=== PATIENT | female | born 1980 | race Hispanic/Latino ===

== ENCOUNTER 2017-05-20 19:59 | Emergency (ER) | payer BC ==
[2017-05-20 20:55] VITALS: RESP 18; TEMP 98.3; O2SAT 100
[2017-05-20] MEDS ORDERED: Sodium Chloride 0.9% 1,000 ML IV STA (21:31)
--- NOTE | 2017-05-20 21:58 | ED PDOC ---
HPI: SOB/CHF/COPD Time Seen by Provider: 05/20/17 21:11 Chief Complaint (Nursing): Abnormal Skin Integrity Chief Complaint (Provider): Shortness of breath History Per: Patient History/Exam Limitations: no limitations Onset/Duration Of Symptoms: Worse Since Current Symptoms Are (Timing): Still Present Additional Complaint(s): Lary Costa, a 36 year old female presents to the Emergency Department complaining of shortness of breath for about two weeks ago and it is worsening since onset. Reports decrease in exercising tolerance and states she has difficulty breathing after walking more than half a block. States she has chest heaviness, racing heart, and cramping bilateral claves. Has generalized malaise , decreased liquid intake, fatigue, and lost weight. Also mentions she has nasal congestion and was treated with z-pack but there was no relief so she was given Levaquin and there was no relief. The patient was in the ED for blood work yesterday and had a positive result for D-dimer and the x-ray was negative. Denies chest pain, fever and no coughing. PMD: Guido Nicholson Past Medical History Reviewed: Historical Data, Nursing Documentation, Vital Signs Vital Signs: Last Vital Signs Temp 98.3 F 05/20/17 20:51 Pulse 128 H 05/20/17 23:56 Resp 18 05/20/17 20:51 BP 128/71 05/20/17 23:56 Pulse Ox 100 05/21/17 01:51 - Medical History PMH: No Chronic Diseases - Surgical History Surgical History: No Surg Hx - Family History Family History: States: Other Other Family History: mother with hypothyroid - Social History Alcohol: Social Drugs: Denies - Home Medications Home Medications: Ambulatory Orders Medication Instructions Recorded Propranolol HCl [Propranolol HCl 60 mg PO BID #20 cap.sa.24h 05/21/17 ER] - Allergies Allergies/Adverse Reactions: Allergies Allergy/AdvReac Type Severity Reaction Status Date / Time No Known Allergies Allergy Verified 05/20/17 20:55 Review of Systems ROS Statement: Except As Marked, All Systems Reviewed And Found Negative (As per HPI, otherwise neagtive) Constitutional: Negative for: Fever, Chills ENT: Positive for: Other (nasal congestion) Cardiovascular: Positive for: Other (chest heaviness; racing heart). Negative for: Chest Pain Respiratory: Positive for: Shortness of Breath, Other (difficulty breathing) Gastrointestinal: Positive for: Other (decreased liquid intake) Musculoskeletal: Positive for: Leg Pain (cramping bilateral claves) Neurological: Positive for: Other (fatigue; generalized malaise) Physical Exam - Reviewed Nursing Documentation Reviewed: Yes Vital Signs Reviewed: Yes - Physical Exam Appears: Positive for: Non-toxic, No Acute Distress, In Acute Distress (mild respiratory) Head Exam: Positive for: ATRAUMATIC, NORMOCEPHALIC Skin: Positive for: Warm, Dry Eye Exam: Positive for: EOMI, PERRL ENT: Positive for: Pharynx Is (clear), Other (tacky mucus membranes) Neck: Positive for: Painless ROM, Supple Cardiovascular/Chest: Positive for: Chest Non Tender, Tachycardia. Negative for : Murmur Respiratory: Positive for: Normal Breath Sounds. Negative for: Accessory Muscle Use, Rales, Rhonchi, Wheezing Gastrointestinal/Abdominal: Positive for: Soft. Negative for: Tenderness Back: Positive for: Normal Inspection. Negative for: Decreased ROM Extremity: Positive for: Normal ROM, Calf Tenderness. Negative for: Pedal Edema Lymphatic: Negative for: Adenopathy Neurologic/Psych: Positive for: Alert. Negative for: Motor/Sensory Deficits - Laboratory Results Result Diagrams: 05/20/17 22:12 05/20/17 21:49 - ECG ECG Rhythm: Positive for: Sinus Tachycardia, Nonspecific Changes O2 Sat by Pulse Oximetry: 100 (RA) Pulse Ox Interpretation: Normal Medical Decision Making Medical Decision Making: Time: 21:27 Initial Impression: shortness of breath, tachycardia Differential Diagnosis includes but is not limited to: pulmonary embolism, anemia, congestive heart failure, thyroid disorder, dehydration Initial Plan: --Type and Screen --Angio Chest PE Protocol CT --EKG --B-type natriuretic peptide --CMP --HCG, Qualitative serum --Magnesium --Phosphorus --Thyroid Stimulating Hormone --Troponin I --CBC --Partial Thromboplastin Time --Prothrombin Time --Normal Saline 1,00ml IV 1,000mls/hr --Reevaluation EXAM: CT Angiography Chest With Intravenous Contrast EXAM DATE/TIME: 05/20/2017 9:27 PM CLINICAL HISTORY: 36 years old, female; Signs and symptoms; Shortness of breath; Additional info: SOB R/O pe TECHNIQUE: Axial computed tomographic angiography images of the chest with intravenous contrast using pulmonary embolism protocol. All CT scans at this facility use one or more dose reduction techniques, viz.: automated exposure control; ma/kV adjustment per patient size (including targeted exams where dose is matched to indication; i.e. head); or iterative reconstruction technique. MIP reconstructed images were created and reviewed. Coronal and sagittal reformatted images were created and reviewed. CONTRAST: 90 mL of [id number] administered intravenously. COMPARISON: No relevant prior studies available. FINDINGS: Pulmonary arteries: Unremarkable. No pulmonary embolism. Aorta: No acute findings. No thoracic aortic aneurysm. Lungs: Unremarkable. No mass. No consolidation. Pleural space: Unremarkable. No significant effusion. No pneumothorax. Heart: A a true RV dysfunction. Bones/joints: No acute fracture. No dislocation. Soft tissues: Unremarkable. Lymph nodes: Unremarkable. No enlarged lymph nodes. IMPRESSION: No pulmonary embolism or other acute finding in the chest. Thank you for allowing us to participate in the care of your patient. Dictated and Authenticated by: Quan Prince MD 05/21/2017 1:03 AM Eastern Time ([place] & [place]) DW pt findings and plan of care. Pt improved HR since arrival and some symptomatic relief with propranolol. Scribe Attestation: Documented by Dimas Moore, acting as a scribe for Tarah Abarca MD Provider Scribe Attestation: All medical record entries made by the Scribe were at my direction and personally dictated by me. I have reviewed the chart and agree that the record accurately reflects my personal performance of the history, physical exam, medical decision making, and the department course for this patient. I have also personally directed, reviewed, and agree with the discharge instructions and disposition. Disposition - Clinical Impression Clinical Impression: Hyperthyroidism Discussed With Dr.: Perfecto Anthony Doctor Will See Patient In The: Office (in AM by [place]) Counseled Patient/Family Regarding: Studies Performed, Diagnosis, Need For Followup, Rx Given - Disposition Referrals: [facility] [Provider Group] - 05/21/17 8:00 am (FOLLOW UP TOMORROW MORNING AT [facility] FOR FURTHER EVALUATION) Disposition: Routine/Home Disposition Time: 01:25 Condition: IMPROVED Prescriptions: Propranolol HCl [Propranolol HCl ER] 60 mg PO BID #20 cap.sa.24h Instructions: Hyperthyroidism (ED) Forms: [facility] ED School/Work Excuse
[2017-05-20 22:20] LABS: BASO % 0.4 % (0.0-2.0); EOS # 0.2 K/uL (0.0-0.7); EOS % 3.6 % (0.0-4.0); HEMOGLOBIN 11.3 g/dL (12.0-16.0); LYMPH # 2.3 K/uL (1.0-4.3); LYMPH % 38.4 % (20.0-40.0); MEAN CELL VOLUME 86.7 fl (81.0-99.0); MEAN CORPUSCULAR HEMOGLOBIN 28.3 pg (27.0-31.0); MEAN CORPUSCULAR HGB CONC 32.6 g/dL (33.0-37.0); MEAN PLATELET VOLUME 10.4 fl (7.2-11.7); MONO # 1.3 K/uL (0.0-0.8); MONO % 21.2 % (0.0-10.0); NEUT # 2.2 K/uL (1.8-7.0); NEUT % 36.4 % (50.0-75.0); PLATELET COUNT 260 K/uL (130-400); RBC 4.01 Mil/uL (3.80-5.20); RED CELL DISTRIBUTION WIDTH 13.1 % (11.5-14.5); WHITE BLOOD COUNT 6.1 K/uL (4.8-10.8)
[2017-05-20 22:32] LABS: MAGNESIUM 1.5 MG/DL (1.6-2.3)
[2017-05-20 22:34] LABS: INR 1.1 (0.9-1.2); PARTIAL THROMBOPLASTIN TIME 31.3 Seconds (25.6-37.1); PROTHROMBIN TIME 11.9 Seconds (9.8-13.1)
[2017-05-20 22:54] LABS: EOSINOPHIL 4 % (0-7); LYMPHOCYTE 31 % (20-50); MONOCYTE 19 % (0-10); NEUTROPHIL 46 % (42-75); PLATELET ESTIMATE NORMAL (NORMAL); TOTAL CELLS COUNTED 100
[2017-05-20 22:55] LABS: ANISOCYTOSIS SLIGHT; LARGE PLATELETS PRESENT; OVALOCYTES SLIGHT; POIKILOCYTOSIS SLIGHT
[2017-05-20 23:12] LABS: ALBUMIN 3.4 g/dL (3.5-5.0); ALT/SGPT 119 U/L (9-52); AST/SGOT 52 U/L (14-36); BLOOD UREA NITROGEN 14 mg/dl (7-17); CALCIUM 9.4 mg/dL (8.4-10.2); GFR AFRICAN-AMERICAN > 60; GFR NON-AFRICAN AMERICAN > 60
[2017-05-20 23:13] LABS: ALB/GLOB RATIO 1.1 (1.0-2.1)
[2017-05-20 23:33] LABS: B-TYPE NATRIURETIC PEPTIDE 307 pg/ml (0-450)
[2017-05-20] MEDS ORDERED: Propranolol 60 mg ER Cap PO STA (23:38)
[2017-05-20] MEDS ORDERED: Sodium Chloride 0.9% 50 ML IV ONE (23:47)
[2017-05-20] MEDS ORDERED: Iodixanol 320 MG/ML 100 ML BOTTLE IV ONE (23:47)
[2017-05-20 23:56] VITALS: BP 128/71; PULSE 128
[2017-05-21] MEDS ORDERED: Magnesium Oxide 400 mg Tab UD PO STA (01:24)
--- NOTE | 2017-05-21 11:06 | CT ---
PROCEDURE: CT Chest with contrast (Pulmonary Angiogram) HISTORY: SOB r/o PE COMPARISON: None available. TECHNIQUE: Axial computed tomography images were obtained of the chest in the pulmonary arterial phase of enhancement. Coronal and sagittal reformatted images were created and reviewed. Intravenous contrast dose: 90.3 cc Visipaque 320 Mean Hounsfield unit values in the main pulmonary artery: Radiation dose: Total exam DLP = 53222.43 mGy-cm. This CT exam was performed using one or more of the following dose reduction techniques: Automated exposure control, adjustment of the mA and/or kV according to patient size, and/or use of iterative reconstruction technique. FINDINGS: PULMONARY ARTERIES: Unremarkable. No pulmonary embolism. AORTA: No acute findings. No thoracic aortic aneurysm. LUNGS: Unremarkable. No nodule, mass or pulmonary consolidation. PLEURAL SPACES: Unremarkable. No effusion or pneuomothorax. HEART: Unremarkable. No cardiomegaly. No significant pericardial effusion. LYMPH NODES: No lymphadenopathy. BONES, CHEST WALL: Unremarkable. No fracture or destructive lesion OTHER FINDINGS: Unremarkable. IMPRESSION: Unremarkable CT pulmonary angiogram. No pulmonary embolus. No acute findings related to/accounting for the clinical presentation. Concordant results (preliminary interpretation) provided by [employer] Procedure Completed: 00:15 Preliminary ([employer]) Report: Dictated and Authenticated: 01:03 Final Interpretation: 11:04 [email or web address].
--- NOTE | 2017-05-21 18:25 | CARD ---
APPROVED REPORT EKG Measurement Heart [id number] <Conclusion> Sinus tachycardia Cannot rule out Anterior infarct, age undetermined Abnormal ECG
== END 2017-05-21 02:00 | disposition home or self-care (01) ==
LOC: H.ER 19:59
DX: J44.9 Chronic obstructive pulmonary disease, unspecified (principal); E05.90 Thyrotoxicosis, unspecified without thyrotoxic crisis or storm; R53.81 Other malaise
CPT/HCPCS: 71275; 80053; 81025; 83735; 83880; 84100; 84443; 84484; 84703; 85025; 85610; 85730; 86850; 86900; 93005; 99282; J7040; Q9967